=== PATIENT | male | born 1975 | race Caucasian/White ===

== ENCOUNTER 2017-10-07 09:42 | Emergency (ER) | payer MEDICAID, SELFPAY ==
[2017-10-07] VITALS (7 sets, daily range): BP systolic 107–125; BP diastolic 70–92; PULSE 55–65; RESP 12–20; TEMP 36.6; O2SAT 96–99; BMI 29.4
--- NOTE | 2017-10-07 10:09 | EKG12_ITS ---
Test Reason : CP Blood Pressure : / mmHG Vent. Rate : 057 BPM Atrial Rate : 057 BPM P-R Int : 182 ms QRS Dur : 092 ms QT Int : 466 ms P-R-T Axes : 026 005 063 degrees QTc Int : 453 ms Sinus bradycardia Otherwise normal ECG Confirmed by LAYO MURPHY, RAYSHAWN ([id number]), food editor DONNA HUBER ([id number]) on 10/13/2017 2:34:34 PM Referred By: OLIVIER Confirmed By:RAYSHAWN VASQUES MD
--- NOTE | 2017-10-07 10:15 | RAD_ITS ---
STUDY: X-RAY CHEST REASON FOR EXAM: Male, 42 years old. Chest pain. TECHNIQUE: Single AP portable view of the chest. COMPARISON: Comparison is made with prior study June 10, 2017. FINDINGS: EKG electrodes are seen. Defibrillator device is present. Hyperinflation. The lungs are clear. There is no demonstrated pleural abnormality. Normal size heart. Normal mediastinum and ellis. There is prominence of the pulmonary hilar arteries without peripheral pulmonary vascular congestion, suggesting pulmonary hypertension. Normal visualized aortic arch and descending thoracic aorta. There are diffuse degenerative changes of the visualized thoracic spine. Normal visualized ribs, clavicles, and shoulders. There is no demonstrated abnormality of the visualized soft tissue structures of the upper abdomen. RAD/Chest 1 View (Portable) IMPRESSION: Hyperinflation. Electronically Signed: Dell Perez MD at 10:45 EDT Tel [phone], Service support ,
[2017-10-07 10:25] LABS: Absolute Lymphocyte Count 1.81 X10^3/ul (0.83-4.51); Absolute Neutrophil Count 2.5 X10^3/uL (2.0-7.7); Basophil# 0.07 X10^3/uL; Basophil% 1.4 % (0-1); Eosinophil# 0.15 X10^3/uL; Eosinophils% 2.9 % (0-5); Hematocrit 43.6 % (40-54); Lymphocyte # 1.81 X10^3/ul (4.0); Lymphocyte % 35.4 % (19-41); Mean Corp Hgb Conc 34.4 g/gl (32-36); Mean Corpuscular Hgb 27.5 pg (27.0-32.0); Mean Corpuscular Volume 79.9 fL (80-94); Mean Platelet Vol. 11.7 fl (6.2-12.0); Monocyte# 0.57 X10^3/uL; Monocyte% 11.1 % (0-10); Neutrophil # 2.52 X10^3/uL (2.7-7.7); Neutrophil % 49.2 % (47-70); Platelet Count 194 K/mm3 (150-450); RBC Distribution Width CV 17.3 % (11.6-14.6); RBC Distribution Width SD 51.1 fl (35.1-43.9); Red Blood Count 5.46 M/mm3 (4.6-6.2); White Blood Count 5.1 K/mm3 (4.4-11.0)
[2017-10-07 10:26] LABS: POSITIVE COUNT NO; POSITIVE DIFFERENTIAL NO; POSITIVE MORPHOLOGY NO
[2017-10-07 10:37] LABS: BUN 23 mg/dL (7-18); Creatinine, Serum 1.01 mg/dL (0.70-1.30); Glucose 108 mg/dL (74-106)
[2017-10-07 10:38] LABS: Anion Gap 7 (5-15); BUN/Creat Ratio 22.8 RATIO (10-20); Calcium,Total 9.4 mg/dL (8.5-10.1); Chloride 106 mmol/L (98-107); EST Glomerular Filtration Rate 85 mL/min (>60); Est Glom Filt Rate - Afr Amer 103 mL/min (>60); Estimated Creatinine Clearance 87.26 ml/min; Potassium 4.5 mmol/L (3.5-5.1); Sodium Level 137 mmol/L (136-145)
[2017-10-07 10:41] LABS: International Normalized Ratio 1.1; Prothrombin Time (Protime)PT. 14.6 SECONDS (11.7-14.9)
[2017-10-07 10:42] LABS: Partial Thromboplast Time 30.2 Seconds (24.1-36.2)
[2017-10-07 10:48] LABS: AST(SGOT) 15 U/L (15-37); Alanine Aminotransfer ALT/SGPT 19 U/L (16-61); Albumin, Serum 4.5 g/dL (3.2-5.0); Alkaline Phosphatase 70 U/L (45-117); Bilirubin, Direct 0.24 mg/dL (0.00-0.30); Protein, Total 8.5 g/dL (6.4-8.2)
[2017-10-07 10:56] LABS: BNP,B-Type NATRIURETIC PEPTIDE 186.3 pg/mL (0-100)
--- NOTE | 2017-10-07 11:41 | NURSING ---
CALLED [facility] TO [facility]ACH CARDIOLOGY. CALLED TRANSFER LINE.
--- NOTE | 2017-10-07 11:54 | ED.VISSUMM ---
- ER Visit Summary Date of Service: 10/07/17 Chief Complaint: Chest pain History of Present Illness: The patient is a 42 M with a history of dilated cardiomyopathy with an EF of 10-15%. He is currently wearing an external defibrillator. Patient states he got chest pressure this morning and states that shock was advised that he canceled it. He was discharged from [facility] on October 01. Patient states he has gained 28 pounds since discharge and 11 of those in the last 2 days. Physical Examination: Vital signs are unremarkable. Patient sitting upright in bed no acute distress. He is alert and talkative. Head neck examination is unremarkable. Heart is bradycardic and regular. Lung sounds are clear. Abdomen is soft and nontender. Extremity examination does not reveal significant edema. Test Results: EKG is sinus at 57 with no sign of acute ischemia. Portable chest x-ray shows hyperinflation. CBC and chemistry studies are unremarkable. LFTs and coags are normal. Troponin is less than 0.02. BNP is 186. Emergency Department Course and Treatment: Just before I paged his director of pharmacy at , the patient ran out stating that his defibrillator had just again advised that shock that he canceled. I reviewed the cardiac specialist but only found motion artifact. I did not find any evidence of cardiac arrhythmia. I spoke with Dr. Delgado, cardiology at [facility]. Patient is accepted in transfer to their telemetry floor. He did ask that if the patient has a card for his external defibrillator, we could call and have it interrogated prior to transfer if possible. Patient is making a phone call at this time to try to get that card. Treatment Plan: [] Disposition: Transfer Impression: 1. Chest pain 2. Dilated cardiomyopathy This note was generated with [employer] software. It may contain incorrect words, spelling, and punctuation that were not noted in review of the chart prior to signing ED Disposition - Plan for ED Patient: Chief Complaint: Chest Pain Referrals: Care Physician,No Primary [Primary Care Provider] -
--- NOTE | 2017-10-07 12:10 | NURSING ---
[facility] 5 ROOM 81 REPORT [phone]
--- NOTE | 2017-10-07 12:21 | ED.RN ---
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 wants to discuss with dr rodriguez prior to signing transfer.
== END 2017-10-07 13:25 | disposition short-term general hospital (02) ==
PROVIDERS: Emergency Provider Emergency Medicine
DX: R07.9 Chest pain, unspecified (principal); I42.0 Dilated cardiomyopathy; I10 Essential (primary) hypertension; I25.2 Old myocardial infarction; Z72.0 Tobacco use
CPT/HCPCS: 71045; 80048; 80076; 83880; 84484; 85025; 85610; 85730; 93005; 99285; A4216